=== PATIENT | male | born 1950 | race Caucasian/White ===

== ENCOUNTER 2016-07-09 07:09 | Day surgery (SDC) | payer MEDICARE, BC ==
[~2016-07-09] VITALS: Ht 170.2 cm; Wt 76.8 kg
--- NOTE | ~2016-07-09 | OR ---
PATIENT'S NAME: WAGNER OLVERA [facility] AGE: 65 Y [address] ROOM: [place] [address] LOCATION: [facility] [place] ADMIT DATE: 07/09/2016 OR/Procedure Report DISCHARGE DATE: FAMILY PHYSICIAN: Wyatt Hawley MD ATTENDING PHYSICIAN: Martin Brandon SURGEON: Martin Brandon MD DIRECTOR OF HEAD START: DATE OF PROCEDURE: 07/09/2016 PREOPERATIVE DIAGNOSIS: Benign prostatic hypertrophy with lower urinary tract symptoms. POSTOPERATIVE DIAGNOSIS: Benign prostatic hypertrophy with lower urinary tract symptoms. PROCEDURE PERFORMED: Cystoscopy, TURP. ANESTHESIA: General. COMPLICATIONS: None. INDICATION FOR PROCEDURE: The patient is a 65-year-old male with BPH with lower urinary tract symptoms, refractory to medical management. PROCEDURE DETAILS: After informed consent was obtained, the patient was taken to the operating room. A general anesthetic was applied. He was placed in the dorsal lithotomy position. The groin area was prepped and draped in normal sterile fashion. Resectoscope sheath was introduced into the urethra and bladder without difficulty. The patient was noted to have significant lateral lobe enlargement. The resectoscope was introduced and resection was begun at the lateral lobes and then at the floor of prostate to the level of the verumontanum. The bladder was empty of chips and further lateral lobe resection was completed. Vascular bleeders were then fulgurated for hemostasis. Further chips were emptied out of the bladder, and I continued resecting down to the crossing fibers. At the end of the procedure, the patient had excellent voiding channel. A 24-Guamanian 3-way Mcelroy catheter was placed on traction. The patient tolerated the procedure well and was transferred to the recovery room in good condition. MARTIN BRANDON MD STANLEY/modl PATIENT'S NAME: WAGNER OLVERA [facility] AGE: 65 Y [address] ROOM: [place] [address] LOCATION: [facility] [place] ADMIT DATE: 07/09/2016 OR/Procedure Report DISCHARGE DATE: FAMILY PHYSICIAN: Wyatt Hawley MD ATTENDING PHYSICIAN: Martin Brandon /[id number] d: 07/09/161 t: 07/14/16 1237, OPERATIVE SUMMARY
[2016-07-09 07:53] LABS: BASOPHIL % 0.7 %; EOSINOPHIL # 0.4 K/uL (0.0-0.5); EOSINOPHIL % 6.8 %; HEMATOCRIT 44.2 % (37.0-53.0); HEMOGLOBIN 15.3 g/dL (11.0-16.0); IMMATURE GRANULOCYTE # 0.1 K/uL (0.0-0.3); IMMATURE GRANULOCYTE % 1.2 %; LYMPHOCYTE # 1.6 K/uL (0.8-4.0); LYMPHOCYTE % 26.9 %; MCHC 34.6 gm/dL (32.0-36.5); MCV 89.7 fl (83.0-98.0); MONOCYTE # 0.7 K/uL (0.0-1.0); MONOCYTE % 11.2 %; NEUTROPHIL # (ANC) 3.2 K/uL (1.4-9.0); NEUTROPHIL % 53.2 %; NRBC % 0 /100WBC (0-0.00); PLATELET COUNT 225 K/uL (150-450); RBC 4.93 M/uL (3.50-5.50); RDW-CV 12.7 % (11.9-14.6); WBC 5.9 K/uL (4.0-11.0)
[2016-07-09 08:02] LABS: ALBUMIN 3.9 gm/dL (3.5-5.0); ALK PHOS 59 IU/L (33-138); ALT 24 IU/L (12-78); ANION GAP 12.9 (10.0-19.0); AST 15 IU/L (10-40); BLOOD UREA NITROGEN 16 mg/dL (6-24); CALCIUM 8.8 mg/dL (8.5-10.5); CHLORIDE 109 mMol/L (96-110); CO2 25 mMol/L (22-32); CREATININE 1.2 mg/dL (0.6-1.3); ESTIMATED GFR (MDRD EQUATION) > 60; POTASSIUM 3.9 mMol/L (3.7-5.1); SODIUM 143 mMol/L (135-145); TOTAL BILIRUBIN 1.7 mg/dL (0.0-1.5); TOTAL PROTEIN 7.1 g/dL (6.0-8.4)
--- NOTE | 2016-07-09 15:37 | NUR ---
Significant Event: Patient up to floor at 1120. Urine has been pink to pale pink with CBI infusing at a slow rate. IV saline locked after patient tolerated full liquid diet for lunch and patient will be on regular diet for supper. Continues on bed rest for today. Leg strap in place with catheter. Wirtz times one in recovery room, but patient up on floor said pain is tolerable and has not needed any additional pain meds. Postop vitals will change to [id number] at 1805. Follow up: Continue to monitor.
--- NOTE | 2016-07-10 04:42 | NUR ---
Significant Event: Bedrest. CBI running. Urine is light pink to light yellow. On room air. [place] at 2206. Mcelroy catheter. Follow up:
--- NOTE | 2016-07-10 09:45 | NUR ---
Introduced self/role to patient and his Nataliia, they live in [place]. No discharge needs at this time. will be around to care for his as needed and there will be no DME needed. Added my name to his marker board, will continue to follow.
[2016-07-10] MEDS ORDERED: NEOSPORIN1 PKT TOP (15:14)
[2016-07-10] MEDS ORDERED: LEVAQUIN 250 M250 MG PO (15:14)
[2016-07-10] MEDS ORDERED: TYLENOL/COD1 TAB PO (15:16)
--- NOTE | 2016-07-10 15:34 | NUR ---
Significant Event: Patient up in room and ambulated today. Urine has remained pale pink to yellow and clear of sediment. Denies pain. Reviewed emptying sutton bag with patient and catheter care. Virtual nurse reviewed leg bag teaching with patient. Both patient and spouse were in when nurse reviewed catheter care and patient's sutton bag teaching. Dr. Brizuela up this afternoon and said patient could be dismissed. Dismissal orders processed by virtual nurse and reviewed with patient. Patient to be dismissed after Virtual nurse finishes dismissal instructions.
--- NOTE | 2016-07-10 15:45 | NUR ---
DISCHARGE: Pt. was educated on new medications levaquin and tyl #3. Demonstrated cath cares in room and switched to leg bag. Educated on cath care sheets, leg bag teaching, and emptying cath teaching. Reviewed discharge instructions and scripts. Patient verbalized understanding, no questions or concerns. Left with all belongings, teaching, and scripts. Patient was walked to front door by nurse and driven home by .
== END 2016-07-10 15:48 | disposition disaster alternative care site (69) ==
LOC: GMSU 07:09 → GSDC 07:09 → UNDOADMIN 07:09 → EDSTATUS 10:00 → GMSU 11:51 → GSDC 07-10 15:48 → GMSU 07-10 15:48
PROVIDERS: Urology
PROC: 0VT08ZZ Resection of Prostate, Via Natural or Artificial Opening Endoscopic (ICD-10-PCS; principal; 2016-07-09)
DX: N40.1 Benign prostatic hyperplasia with lower urinary tract symptoms (principal); R39.9 Unspecified symptoms and signs involving the genitourinary system; E78.00 Pure hypercholesterolemia, unspecified; Z98.890 Other specified postprocedural states
CPT/HCPCS: J1100; J1956; J2405; J7030

== ENCOUNTER 2016-09-27 18:23 | Inpatient (IN) | payer MEDICARE, BC ==
[~2016-09-27] VITALS: Ht 170.2 cm; Wt 75.9 kg
--- NOTE | ~2016-09-27 | OR ---
PATIENT'S NAME: WAGNER OLVERA [facility] AGE: 66 Y [address] ROOM: [place] [address] LOCATION: [facility] [place] ADMIT DATE: 09/29/2016 OR/Procedure Report DISCHARGE DATE: FAMILY PHYSICIAN: Wyatt Hawley MD ATTENDING PHYSICIAN: ALVARO DUKE V SURGEON: Delmy Golmdan MD MANDOLIN REPAIR PERSON: DATE OF PROCEDURE: 10/01/2016 PREOPERATIVE DIAGNOSES: 1. 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 2. Left L3-4 disk herniation. POSTOPERATIVE DIAGNOSES: 1. 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 2. Left L3-4 disk herniation. OPERATION PROPOSED AND PERFORMED: 1. Decompressive partial hemilaminectomy, medial facetectomy, foraminotomy, left L3-4. 2. Left L3-4 microdiskectomy. 3. Microscope. 4. Fluoroscopy with my interpretation. DESCRIPTION OF PROCEDURE: Under general anesthesia, the patient was positioned prone. The back was prepped and draped in the usual fashion. A midline linear incision was then carried out extending from the spinous process of L3 to L4. Fascia was incised to the left of the midline. The paraspinal muscles were reflected from the lamina of L3 and L4 on the left side. Next, we brought the C-arm in, put a Luxor #4 to christina a spot and ensured that we were a bit distal to the L3-4 disk space which would be compatible because the #4 was placed at the inferior edge of the L3 lamina. Next, the Larry self-retaining retractor was then used using the hemilaminectomy portion of it. Next, the microscope was brought in. With the aid of the microscope, we drilled out the inferior part of the lamina of L3 and excised the yellow ligament. There was hypertrophy of the facet joint, and consequently in order to adequately decompress lateral recess, we had to drill off all these hypertrophied portions of the facet joints. At the end of this, we were lateral to the dura and the epidural space. We followed the dura all the way into the neural foramen. Did a foraminotomy in order to adequately decompress the nerve root. We went as far as to the midline so that we could just decompress the midline as best we could. After this was done, we then concentrated on the disk. We retracted the dura and nerve root away from the midline. It exposed the herniated disk which was significantly herniating. On doing this, we went ahead and retracted the dura and the nerve PATIENT'S NAME: WAGNER OLVERA [facility] AGE: 66 Y [address] ROOM: [place] [address] LOCATION: [facility] [place] ADMIT DATE: 09/29/2016 OR/Procedure Report DISCHARGE DATE: FAMILY PHYSICIAN: Wyatt Hawley MD ATTENDING PHYSICIAN: ALVARO DUKE V root toward the midline. On doing this, we were able to see the herniated disk. We coagulated the epidural vessels and these vessels were incised. The disk was significantly herniating. Consequently, we made an incision into the annulus and did a regular diskectomy using in this case microsurgical technique. After this was done, the nerve was quite free as well as with adequate decompression of the lateral recess. The wound was then thoroughly irrigated with bacitracin irrigation and closed in layers. First the fascia subcutaneously and finally the skin. The patient tolerated the procedure well and was taken to the recovery room. MD CAN WINSLOW/pati /[id number] d: 10/01/16 2246 t: 10/26/16 1231, OPERATIVE SUMMARY
--- NOTE | ~2016-09-27 | HP ---
PATIENT'S NAME: WAGNER OLVERA [facility] AGE: 66 Y [address] ROOM: [place] [address] [place] [facility] [place] ADMIT DATE: 09/27/2016 History & Physical DISCHARGE DATE: FAMILY PHYSICIAN: Wyatt Hawley MD ATTENDING PHYSICIAN: ALVARO DUKE V DATE OF SERVICE: CHIEF COMPLAINT: Leg and back pain. HISTORY OF PRESENT ILLNESS: The patient is a 66-year-old male who was healthy until an incident 2 weeks ago. At that point, he had a twisting injury of his back while loading a boat onto a trailer. Since then, he has been experiencing left-sided lower back pain with radiation into his left anterior proximal thigh as well as around his thigh into the back. He describes the pain as achy and causing him considerable disability for his walking. Today, he had a sudden "pop" and went down to the floor without any significant injury, but at this point, he has severe worsening pain around his proximal hip. In the ER, the patient had an MRI of his lumbosacral spine, which showed mild spinal canal narrowing at L2-L4, bulging disk at L3-L4 with moderate spinal narrowing., and moderate right and rcqbkvuu-aw-zhilug left neuroforaminal stenosis, there was a disk bulging at L4-L5, zsab-bt-mhznyptn right and nceqjmgd-vb-qbwgaz left neuroforaminal stenosis, and left hemilaminectomy. The patient has received NSAIDs and prednisone in the ER. Of note, he has been taking NSAIDs for about 2 weeks, which did not relieve his symptoms. He also has been using ice and heat, which also have not relieved his symptoms. REVIEW OF SYSTEMS: He denies any shortness of breath, nausea, vomiting, or palpitations. All systems have been reviewed and are negative aside from pertinent positives mentioned above. PAST MEDICAL HISTORY: BPH, status post recent TURP. SOCIAL HISTORY: Negative for any toxic habits. FAMILY HISTORY: Reviewed and is noncontributory due to known underlying etiology for his presentation. PATIENT'S NAME: WAGNER OLVERA [facility] AGE: 66 Y [address] ROOM: [address] [address] [place] [facility] [place]MIT DATE: 09/27/2016 History & Physical DISCHARGE DATE: FAMILY PHYSICIAN: Wyatt Hawley MD ATTENDING PHYSICIAN: ALVARO DUKE V CURRENT MEDICATIONS: Advil and Tylenol 3 as needed. PHYSICAL EXAMINATION: VITAL SIGNS: Blood pressure 162/101, pulse is 75, respirations are 20, saturating 95% on room air, and temperature 99.2. GENERAL: Well-developed, well-nourished middle-aged gentleman in no acute distress. NEUROLOGIC: He has 5/5 strength in bilateral lower extremities. He has preserved sensation in lower extremities. His left leg straight test goes up to approximately 80 degrees without significant symptoms. HEENT: His eye exam shows pupils are equal and reactive to light. LYMPHATICS: Exam shows no cervical lymphadenopathy. ENDOCRINE: Exam shows no thyromegaly. LUNGS: Clear to auscultation. HEART: Rate is regular. ABDOMEN: Soft, nontender, nondistended. : No costovertebral angle tenderness. VASCULAR: A 2+ pedal pulses. MUSCULOSKELETAL: There is some left-sided paraspinal tenderness in his lumbar spine. LABORATORY DATA: MRI as per HPI. ASSESSMENT AND PLAN: This is a 66-year-old male with presumed lumbar radiculopathy. At this point, Dr. Goldman of Neurosurgery has been consulted and will see the patient in the morning. At this point, I explained to the patient that I would like to avoid very potent opioids. He has already received prednisone and we will await for that to work. We will also provide him with muscle relaxants if that relieves his symptoms. We will also provide him with heat. I am not tempted to continue NSAID given the fact that he has already taken a 2 week course. Additional management will depend on recommendations from Neurosurgery. Time dedicated to this patient encounter is 25 minutes. MD GLENYS BLANDON/pati PATIENT'S NAME: WAGNER OLVERA [facility] AGE: 66 Y [address] ROOM: [place] [address] [place]: [facility] [place]MIT DATE: 09/27/2016 History & Physical DISCHARGE DATE: FAMILY PHYSICIAN: Wyatt Hawley MD ATTENDING PHYSICIAN: ALVARO DUKE V /[id number] D: 136 T: [id number] HISTORY & PHYSICAL
--- NOTE | ~2016-09-27 | CON ---
PATIENT'S NAME: WAGNER OLVERA [facility] AGE: 66 Y [address] ROOM: [place] [address] [place] [facility] [place]MIT DATE: 09/29/2016 Consultation DISCHARGE DATE: 10/02/2016 FAMILY PHYSICIAN: Wyatt Hawley MD ATTENDING PHYSICIAN: Keyur Bingham V REFERRING PHYSICIAN: Delmy Goldman MD Consult for Dr. Goldman. HISTORY OF PRESENT ILLNESS: This pleasant 66-year-old gentleman is referred for rehab evaluation. He is status post: 1. Decompressive partial hemilaminectomy and medial facetectomy with foraminotomy at L3-4. 2. Left L3-4 microdiskectomy. 3. Microscope use. 4. Fluoroscopy use done on 10/01/2016, details on record. PAST MEDICAL HISTORY: Past history of significance: Recently, he did have a TURP for benign prostatic hypertrophy. PHYSICAL EXAMINATION: GENERAL: Now, he is alert, oriented. VITAL SIGNS: Blood pressure 130/69, temperature 98.4, pulse 88, respiratory rate 18. He is 5 feet 7 inches tall and weighs 75.9 kg. NEUROLOGIC: Intact, except that he feels some numbness in the left lower extremity and weakness in the left lower extremity, especially the quad muscles. At the present time, muscle strength is about 3+/5, and he is at high risk of falling, and he should not walk unless he is assisted. He is at the present time, otherwise, continent of his bowel and bladder. Deep tendon reflexes are present, except for the left lower extremity. The knee jerk is a little bit less active on the left side in comparison to the right. MEDICATIONS: He is on the following medications: 1. Oxycodone. 2. Morphine sulfate. 3. Fleets. 4. Dulcolax. 5. NaCl 0.9%. 6. Colace. 7. Oxycodone. 8. Mylanta. 9. Tylenol. 10. Skelaxin. PATIENT'S NAME: WAGNER OLVERA [facility] AGE: 66 Y [address] ROOM: [place] [address] [place]: [facility] [place]MIT DATE: 09/29/2016 Consultation DISCHARGE DATE: 10/02/2016 FAMILY PHYSICIAN: Wyatt Hawley MD ATTENDING PHYSICIAN: Keyur Bingham V 11. Valium. 12. Fentanyl. 13. Lyrica. 14. Dilaudid. 15. Pepcid. ASSESSMENT AND PLAN: Can at the present time stand with minimum assistance. I think he will be able to go on an outpatient basis for PT/OT. Script is given. He should always use a front-wheeled walker, and I have given him a script for that too, and also he should have a gait belt on at all times. I have given a script for outpatient PT/OT 3 times per week for the coming 2 weeks. I want to see him in my office in 2 weeks[address] He should not drive and/or operate any mechanical device. He should avoid alcohol at the present time. All the above was explained to him in detail. He verbalized understanding and agreement with plan of care. Thank you for this referral. MARCELINO ARREOLA MD WMS/modl /[id number] d: 10/02/162018 t: 10/03/16 1433, CONSULTATION REPORT
--- NOTE | ~2016-09-27 | CON ---
PATIENT'S NAME: WAGNER OLVERA [facility] AGE: 66 Y [address] ROOM: [address] [address] [place] [facility] [place]: 09/27/2016 Consultation DISCHARGE DATE: FAMILY PHYSICIAN: Wyatt Hawley MD ATTENDING PHYSICIAN: ALVARO DUKE V REFERRING PHYSICIAN: Delmy Goldman MD HISTORY OF PRESENT ILLNESS: I saw this 66-year-old male in the hospital today. He was admitted last night with a history of acute onset of low back pain that occurred when he was trying to load a boat into a trailer and twisted somehow. The pain was severe, but it got worse last night when something popped in his back and as a result of that it increases the severity of his pain. The pain goes down the left lower extremity along the L4 dermatome, and in addition, he has noticed some weakness in his left leg. He has difficulty ambulating primarily because of that. The pain was quite severe that he had to come to the emergency room and was admitted for pain control. A relevant portion of his past medical history is that he has had a left L4-L5 hemilaminectomy about 10 years ago and has done very well following the surgery. He denies any problems with bladder or bowel control. He does have numbness in the L4 dermatomal distribution. He does not experience tingling in that distribution. He went on to have an MRI of the lumbosacral spine done, which showed a severe stenosis of the lumbar spinal canal at L3-L4 with diffuse disk bulge, asymmetric to the left. He also has evidence of lumbar spondylosis with multiple areas of neural foraminal stenosis. PAST MEDICAL HISTORY: 1. He has a history of benign prostatic hypertrophy, and he has had TURP recently. 2. He has had previous decompressive laminectomy at the L4-L5 level on the left side. SOCIAL HISTORY: He does not smoke. He does not drink alcohol. ALLERGIES: SEE THE ADMITTING NOTE. FAMILY HISTORY: Noncontributory. REVIEW OF SYSTEMS: Apart from the severe back pain with radiation down the left lower extremity, he did not have any other abnormality on review of systems. PHYSICAL EXAMINATION: [facility] AGE: 66 Y [address] ROOM: [id number] [place], [place] [address] [place] [facility] [place] DATE: 09/27/2016 Consultation DISCHARGE DATE: FAMILY PHYSICIAN: Wyatt Hawley MD ATTENDING PHYSICIAN: ALVARO DUKE V GENERAL: On examining him in the hospital today, he did not appear to be in any acute distress, primarily because of the adequate pain medications that he is presently on along with the muscle relaxant. HEENT: Normocephalic. NECK: No restriction of movement of the cervical spine. No tenderness on palpating cervical spinous processes. CHEST: Clear. HEART: Heart rate was regular. Heart sounds were normal. ABDOMEN: There was no tenderness on palpating the abdomen. No masses palpable. BACK: There was no tenderness on palpating the lumbar spinous processes or SI joints. Straight leg raising was negative bilaterally. NEUROLOGIC: Cranial nerve examination was normal. The motor examination showed moderate weakness of the quadriceps on the left side. Sensory examination showed decreased sensation in the L4 dermatome on the left side except for the foot. Reflexes; the left knee jerk was markedly diminished compared to the right, rest of the reflexes were symmetrical and normal. Toes were downgoing. IMPRESSION: This gentleman has a left L4 radiculopathy secondary to the severe stenosis at L3-L4 with superimposed disk bulge. He is presently comfortable with the analgesics he has been at the present time, and my suggestion is that we should now switch to oral analgesics and see how well he can tolerate it. In addition, the physical therapist has to work on strengthening the quadriceps muscles on the left side. If his pain does recur and gets quite severe or his weakness gets any worse, then I would recommend that we should go ahead and decompress the L4 nerve root by decompressing the lateral recess at L3-L4 on the left side and explore the disk. If the disk is significantly herniating, we will then shave it doing a diskectomy at that time. This was explained to him and his in the hospital today. We will follow. MD CAN WINSLOW/pati /[id number] d: 09/29/16 0254 t: 10/26/16 1228, CONSULTATION REPORT
--- NOTE | ~2016-09-27 | DS ---
PATIENT'S NAME: WAGNER OLVERA [facility] AGE: 66 Y [address] ROOM: [address] [address] [place]ATION: [facility] [place] ADMIT DATE: 09/29/2016 Discharge Summary DISCHARGE DATE: 10/02/2016 FAMILY PHYSICIAN: Wyatt Hawley MD ATTENDING PHYSICIAN: Keyur Bingham V ADMITTING DIAGNOSIS: Back pain secondary to lumbar spinal canal stenosis. DISCHARGE DIAGNOSIS: Back pain secondary to lumbar spinal stenosis status post surgery. Symptoms resolved. SECONDARY DIAGNOSES: 1. Back pain. 2. Left lower extremity weakness and tingling. PROCEDURES PERFORMED: 1. Decompressive partial hemilaminectomy and medial facetectomy with foraminotomy at L3-L4. 2. Left L3-L4 microdiskectomy. 3. Procedure done by Dr. Goldman on 10/01/2016. HISTORY OF PRESENT ILLNESS: The patient is a 66-year-old gentleman who was healthy until an incident that happened two weeks ago. The patient reports that he had a twisting injury of the back while loading a boat onto a trailer. Since then he has been experiencing left-sided lower back pain radiating to his left anterior proximal thigh as well as around thigh into his back. He describes the pain as aching, causing him considerable pain during walking. Today, he had a sudden pop and went down on the floor without any significant injury. In the ER, the patient had an MRI of his lumbosacral spine which showed mild spinal canal narrowing at L2 and L4, and bulging disk at L3-L4 with moderate spinal stenosis. The patient was admitted for pain control. During his stay, the patient was noted to have decreased motor strength in the left lower extremity and worsening numbness around his left lower extremity. The patient was seen by Dr. Goldman. The patient was taken to surgery for decompressive partial hemilaminectomy at L3-L4 and microdiskectomy of left L3-L4. The patient tolerated the procedure well. After the procedure, the patient reports of improving back pain and decreased numbness with some gain of motor function. On the day of discharge, the patient's left lower extremity strength was 4/5, right lower extremity was 5/5. The patient was seen by Dr. Mckeon with PT and OT. The patient was not a candidate for inpatient rehabilitation. However, was to be discharged with a front-wheel walker and PT and OT as PATIENT'S NAME: WAGNER OLVERA [facility] AGE: 66 Y [address] ROOM: [address] [address] LOCATION: [facility] [place] ADMIT DATE: 09/29/2016 Discharge Summary DISCHARGE DATE: 10/02/2016 FAMILY PHYSICIAN: Wyatt Hawley MD ATTENDING PHYSICIAN: Keyur Bingham V outpatient. The patient was given a script for those. The patient was also given a script for Percocet for breakthrough back pain. The patient is to follow up with primary care physician within 1 week for suture removal, and follow up with Dr. Goldman in 3 weeks. CONDITION: Stable. DISPOSITION: Home. DISCHARGE MEDICATIONS: See MAR. DISCHARGE INSTRUCTIONS: 1. Not to drive a car until being seen by primary care physician and Dr. Goldman, especially when patient is taking pain medication. This was also discussed with over the phone. 2. Recommendation to follow up with primary care physician. 3. Follow up with primary care physician in 1 week for removal of lolis and follow up with Dr. Goldman in 3 weeks. Greater than 30 minutes were spent on discharge planning. Case was discussed with Dr. Goldman and also case was discussed with and patient. MD JAS CRAFT/pati /[id number] d: 10/03/162005 t: 10/09/16 0614, DISCHARGE SUMMARY
--- NOTE | ~2016-09-27 | ER ---
PATIENT'S NAME: [facility] AGE: 66 Y [address] ROOM: [place] [address] LOCATION: [facility] [place] ADMIT DATE: 09/27/2016 ER/Outpatient Report DISCHARGE DATE: FAMILY PHYSICIAN: Wyatt Hawley MD ATTENDING PHYSICIAN: ALVARO DUKE V CHIEF COMPLAINT: Back pain. HISTORY OF PRESENT ILLNESS: Mr. Wilkes has been fighting back pain for the last week. He states he has mostly been lying on the couch using crutches to walk. He felt like he was getting better taking his scheduled pain medication from an anti-inflammatory standpoint, but this evening he was trying to arise from a seated position, felt a pop in his back and has had intense pain through the left lateral thigh that is poorly demarcated. He denies pain anywhere else unless pressed in which case, he says he may have pain throughout his leg. It is unclear. He states he has a history of bulging disk and Dr. Goldman did surgery on this before. He is concerned that may be the case. The family is very concerned about him because he is so tough and can tolerate very large amount of pain that him wanting to come in is indicative of severe process. The patient has no other complaints. Denies any bowel or bladder dysfunction issues and is otherwise feeling okay. He did take a narcotic pain reliever from a recent prostate procedure and that has not helped a whole lot. He feels he is unable to walk or otherwise take care of himself. PAST MEDICAL HISTORY: Documented on the record and reviewed by me. SOCIAL HISTORY: Documented on the record and reviewed by me. MEDICATIONS: Documented on the record and reviewed by me. ALLERGIES: DOCUMENTED ON THE RECORD AND REVIEWED BY ME. REVIEW OF SYSTEMS: All systems reviewed and negative except as noted in the HPI. PHYSICAL EXAMINATION: VITAL SIGNS: Blood pressure 162/101, pulse 75, respiratory rate 20, temperature 99.2, and SpO2 is 95% on room air. Pain is rated at 12/10. GENERAL: Age-appropriate male, in moderate pain, recumbent on the exam table. PATIENT'S NAME: W[facility] AGE: 66 Y [address] ROOM: [place] [address] LOCATION: [facility] [place] ADMIT DATE: 09/27/2016 ER/Outpatient Report DISCHARGE DATE: FAMILY PHYSICIAN: Wyatt Hawley MD ATTENDING PHYSICIAN: ALVARO DUKE V Massaging his left thigh with his hip flexed. NEUROLOGIC: Awake and alert. GCS is 15. No focal deficits. Neurologic exam of left lower extremity is limited by pain. The patient has normal intact sensation throughout. Tenderness of the thigh goes along the dermatome of L3, but appears to stop at the knee and it is unclear if it goes distally. He is very poorly able to further elaborate. No obvious muscular weakness. HEENT: Normocephalic, atraumatic. Eyes are PERRLA. Oropharynx is clear. NECK: Supple. Trachea is midline. CHEST/HEART: Regular rate and rhythm. LUNGS: Even, unlabored respirations. ABDOMEN: Benign. BACK: Normal to inspection and palpation. No spinal tenderness. Tenderness over the left SI joint and diffusely, non-reproducible consistently. No tenderness at the sciatic notch. Bilateral lower extremities are grossly unremarkable. No deformation is appreciated. Straight leg test does not exacerbate pain. The extremities appear to be warm and well-perfused otherwise. No edema. SKIN: Clear, dry, and intact. 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 It is unclear if these are changed from prior MRIs. IMPRESSION: Intractable pain, which may be related to nerve compression or radiculopathy. EMERGENCY DEPARTMENT COURSE: The patient was seen and evaluated as above. He did not respond appropriately due to a dose of Percocet. He was given steroids with prednisone in addition to Dilaudid for symptom relief and Zofran for possible nausea. This helped to facilitate the MRI. Based on his current presentation and inability to walk, he will need to be admitted to the hospital service. Dr. Duke will admit him. He will be seen by Dr. Goldman in the morning. All questions were answered. The patient was admitted without further issue. MD MAURICIO BAKER/pati /[id number] d: 09/28/16 0458 t: 10/02/16 1224, OUTPATIENT REPORT
[~2016-09-27 18:23] MED LIST: LEVAQUIN 250 M250 MG PO; NEOSPORIN1 PKT TOP; TYLENOL/COD1 TAB PO
--- NOTE | 2016-09-28 02:40 | NUR ---
PT ADMITTED LATE LAST NIGHT WITH SIGNIFICANT BACK/LEG PAIN. HAS HISTORY OF HERNIATED DISCS, ENLARGED PROSTATE (TURP PERFORMED). WISHES TO BE FULL CODE. REFUSED PNEUMATICS, EDUCATION GIVEN. PT OF DR. EMERY. 2OG PIV TO LAC PLACED IN ER. DENIES NUMBNESS/TINGLING TO LLE. ARRIVED TO UNIT AT 2240 FROM ER, IN AN AGGITATED STATE. PT TO SEE IN AM. CONSULT TO DR. GENAO.
--- NOTE | 2016-09-28 04:45 | NUR ---
Significant Event: AAOX3. REG DIET. PIV TO LAC SL. ACTIVITY DID NOT OCCUR DURING SHIFT. PT CONSISTENTLY STATED HE WAS IN PAIN, IN AN AGGITATED STATE THROUGHOUT SHIFT. UNREALISTIC IDEATION OF BEING COMPLETLY PAIN FREE. PT WAS NOT HAPPY WITH ONLY TYLENOL FOR PAIN CONTROL. NOTIFIED: N/O FITZ 5MG PO Q6 PRN, ADMIN X1, LAST AT 0330. PT WAS ASKED SEVERAL TIMES IF HE HAS HX OF ANXIETY, DENIED EVERY TIME. PT WAS COUNTING THE MINUTES/SECONDS OF WHEN HE TOOK HIS PAIN MEDICATION. RIGHT AT THE HOUR MARGARITO WOULD INFORM NURSE IF PAIN WAS NOT COMPLETLY GONE. PAIN EDUCATION GIVEN TO PT SEVERAL TIMES THROUGHOUT SHIFT. RECEIVED IN REPORT FROM ER HE WAS GIVEN EDUCATION ON PAIN CONTROL WELL. PT WAS VERY RESTLESS FOR MOST OF SHIFT, HEATING PAD PLACED UNDER PT'S BACK TO AIDE WITH PAIN CONTROL. REPOSITIONED PT SEVERAL TIMES THROUGHOUT SHIFT. SANDWICH AND CRACKERS GIVEN TO PT, CONSUMED 100%. USES URINAL AT BEDSIDE. Follow up:
--- NOTE | 2016-09-28 12:03 | NUR ---
Significant Event: Patient alert and oriented x3. Vitals stable on room air. All neuro within normal limits. Left AC IV saline locked. Reports lower achey/dull back pain that radiates to anterior left leg that describes as burning. Got up and walked a few steps with therapy this morning. Gave skelaxin at 0744 for 3/10 pain and has not requested additional pain meds since. Pleasant/cooperative with cares. to see today Follow up:
--- NOTE | 2016-09-28 12:26 | NUR ---
Introduced self and care management services to patient. Lives in [place] with . Waiting to see Dr Goldman to see what options and needs are for his back/back pain. Plans on going home on discharge, denies anticipating any needs. Will follow.
--- NOTE | 2016-09-28 18:25 | NUR ---
Significant event: patient is alert and oriented. VSS. on room air. IV to left AC, saline locked. Had pain med at 1330 with relief. Does have K-Pad to room, uses hot and cold. Needs assistance with all ambulation, due to left leg giving out. Uses walker gait belt. Dr Goldman ordered physical therapy. Possible surgery on saturday if therapy does not help his leg get stronger. Uses urinal at bedside if needed. Family at bedside. Pt needs reinforcement to call for help and not get up by himself.
--- NOTE | 2016-09-29 07:25 | NUR ---
Significant Event: AAOX3. REG DIET. PIV TO LAC SL. 1PA WITH FWW/GB. PT NON-COMPLIANT WITH INFORMING STAFF OF ACTIVITIES. REFUSED BED ALARM. HEATING PAD UNDER PT'S BACK TO AIDE WITH PAIN CONTROL. PT REPOSITIONED SELF. NO PAIN MEDICATION ADMINISTERED LAST NIGHT. Follow up:
--- NOTE | 2016-09-29 19:19 | NUR ---
Significant Event: Patient is alert and oriented x3. VSS and on RA. Percocet given x3 for pain and Skelaxin once for pain. Towards the end of the shift the patient felt as if the percocet was not helping anymore. MD notified and ordered linh q4PRN. Complaints of numbness and tingling in the left leg. Cannot bear weight on the left leg. Up with 1PA and walker. Cooperative with cares.
--- NOTE | 2016-09-30 04:36 | NUR ---
Significant Event: PT REMAINED IN BED MOST OF SHIFT. STATED HE WAS MORE COMFORTABLE LAYING DOWN AND NOT SITTING UP. FITZ ADMINISTERED X2, LAST AT 0050 TYLENOL ADMIN X1, LAST AT 0050. PT FAMILY AT BEDSIDE YESTERDAY EVENING. PT WAS ENGAGED IN CONVERSATION/LAUGHING. USES URINAL. FLUID INTAKE IS WELL. Follow up:
--- NOTE | 2016-09-30 15:16 | NUR ---
Significant Event: Patient is alert and oriented x3. Blood pressure this morning was 153/100- patient was in a lot pain, rechecked after a pain pill 30 minutes later and he was 138/81. Pain has been worse today. Jaquelin given x2, minimial relief noted and skelaxin given x1, small relief noted. Started on lyrica and dilaudid for breakthrough pain. Had relief with both. Currently rating his pain at a 3. Has numbness and tingling to the Left lower leg. Will have surgery in the am at 10. NPO after midnight. Did have a BM today, colace incrased to BID. NWB to the L) extremity. Voiding okay. Family in and out at the bedside. Cooperative with cares.
--- NOTE | 2016-10-01 04:03 | NUR ---
Pt. alert and oriented. RA. VSS - High BP at times. IV L) AC - saline locked. Pain well controlled this shift. Skelaxin given at 2100 with HS meds. No other PRN meds given. Did use walker and go to BR. Uses urinal at bedside. NWB to L) side. Did sleep throughout night. NPO since midnight. Surgery scheduled for 1030 today. Cooperative and pleasant with cares.
--- NOTE | 2016-10-01 16:57 | NUR ---
Significant Event: Patient is alert and oriented x3. VSS and on 1 liter of O2 at this time. Had lumbar lami of the L3-L4 today. He was very confused anestheia, but has since recovered from that. VS Q15 minutes until stable, has been stable. Diet as tolerated. Has taken in some pudding. Can straight cath every 4-6 hours as needed if unable to void. IVs to the L)FA and L)AC, fluids infusing. PT for post op eval. SL IV when tolerating fluids. Acitivty as tolerated. Dressing to the mid lower back is C/D/I. Denies pain at this time. Cooperative with cares. Family at the bedside.
--- NOTE | 2016-10-01 20:02 | NUR ---
LATE ENTRY: 1350 PATIENT IS WAKING UP SLOW FROM ANESTHETIC. HE IS VERY CONFUSED AND AGGITATED. ATTEMPT TO GET OUT OF BED. REORIENTATING PATIENT DOES LITTLE GOOD AT THIS TIME. 1402 VALIUM GIVEN FOR SPAZMS, 1405 FENTANOL GIVEN FOR PAIN. 1412 VALIUM REPEATED. HEART RATE AND ANXIETY, SPAZMS APPEARE TO BE RESOLVING AT THIS TIME. 1445 PATIENT REMAINS CONFUSED TO PERSON TIME AND PLACE. HE IS TALKING A LITTLE MORE APPROPRIATE AT THIS TIME. 1508 PATIENT IS FINALLY FULLY AWAKE AND MAKING APPROPRIATE STATEMENTS. HE IS ABLE TO TELL ME WHERE HE IS AND WHERE HIS FAMILY IS. 1530 PATIENT DISMISSED FROM PACU TO MED/SURG.
--- NOTE | 2016-10-02 00:34 | NUR ---
SIGNIFICANT EVENT: Alert & oriented. VSS on RA. Lumbar lami on 10/01/[address] Goldman. Percocet (2 tabs) given x1 so far this shift - last at 2027. Regular diet. Will probably need 2PA to ambulate - denies numbness/tingling to L) leg but does have weakness. Dressing to Mid Lower Back - C/D/I. Has voided x2 so far this shift. Both the L) FA and L) AC IV's are SL. Pleasant and cooperative with cares.
--- NOTE | 2016-10-02 09:07 | NUR ---
A-SCREENED D/T LOS S/P LAMI OF L3-L4 ON 10/01 HT: 67 IN. WT: 75.9 KG. BMI: 26.2 NO LABS MEDS: PERCOCET, MORPHINE, PRN BOWEL MEDS, COLACE, ROXICODONE, SKELAXIN DIET RX: REGULAR. PO HAS BEEN GOOD; 75-100% FOR THE MOST PART SINCE ADMIT EST NUTR NEEDS: 9827-7930 KCALS (25-30 KCALS/KG) 61-76 GM PROTEIN (0.8-1.0 GM/KG) 1 ML FLUID/KCAL D-NOT AT NUTRITION RISK; NO NUTRITION DX IDENTIFIED I-CONTINUE W/CURRENT DIET RX M/E-ASSIST NEEDED
--- NOTE | 2016-10-02 14:20 | NUR ---
Talked with patient, planning on going home tomorrow. and family will assist him at home as needed. Dr Mckeon saw him and will follow as an outpt, ordered outpt therapies. Offered to set up first outpt therapy appt and he said he would like to start next Saturday as there is a wedding this weekend his family is going to. Would like to go to [facility] as outpt. Called and set up appt on SaturdayOctober 08 at 9:45 am, put that info on discharge order sheet and gave pt card. Pt has script for therapies and also for walker and gait belt. Told pt he can take script to [employer] to get walker and equipment, otherwise can go to [employer] and borrow the walker and other equipment he thinks he might be able to use short term and then return them when done. Gave him address and phone number for [employer]. Denies other needs. Will follow.
--- NOTE | 2016-10-02 15:31 | NUR ---
Significant Event: Patient has done well this shift. Only complaint of pain is to patient's suture line. Still has weakness to left leg but is able to ambulate with 1 assist and walker if he takes his time. Has not needed pain medication. Did receive order for miralax and will give it shortly. Follow up: Continue to monitor.
[2016-10-02] MEDS ORDERED: COLACE100 MG PO (16:18)
[2016-10-02] MEDS ORDERED: TYLENOL325 MG PO (16:18)
[2016-10-02] MEDS ORDERED: SKELAXIN800 MG PO (16:19)
[2016-10-02] MEDS ORDERED: PERCOCET 5-3251 EACH PO (16:21)
--- NOTE | 2016-10-02 18:25 | NUR ---
DISCHARGE: Pt. and were explained discharge instructions. Educated on back surgery aftercare and follow up. Script given for walker and pt/ot. Patient will have physical therapy starting on Saturday. Educated on new medications and fall prevention in the home. Verbalized understanding of teaching, no questions or concerns. Left with all belongings and prescriptions. IVs removed by primary RN. Taken to front door by aide and driven home by .
== END 2016-10-02 18:45 | disposition disaster alternative care site (69) | DRG 520 ==
LOC: GMED 18:23 → GMSU 22:04
PROVIDERS: ADMIT Internal Medicine
DX: M48.06 Spinal stenosis, lumbar region (principal); N40.0 Benign prostatic hyperplasia without lower urinary tract symptoms; M51.26 Other intervertebral disc displacement, lumbar region; M54.16 Radiculopathy, lumbar region
CPT/HCPCS: G0378; J0690; J1170; J2405; J3010; J3360; J7120; J7512